=== PATIENT | male | born 1960 | race Caucasian/White ===

== ENCOUNTER 2022-04-03 14:07 | Outpatient (CLI) | payer OTHER | END 2022-04-03 14:08 | disposition home or self-care (01) | LOC: BICCT 14:07 | PROVIDERS: ATTEND Internal Medicine Cardiovascular Disease | DX: I71.2 Thoracic aortic aneurysm, without rupture (principal) | CPT/HCPCS: 71250 ==

== ENCOUNTER 2023-05-21 09:32 | Outpatient (CLI) | payer OTHER ==
[2023-05-21] MEDS ORDERED: Iopamidol-370 76% 500 ML MDV (1 ML CHARGE) ONE (12:48)
== END 2023-05-21 09:33 | disposition home or self-care (01) ==
LOC: BICCT 09:32
PROVIDERS: ATTEND Physician Assistant
DX: I25.10 Atherosclerotic heart disease of native coronary artery without angina pectoris (principal); I71.21 Aneurysm of the ascending aorta, without rupture; I71.20 Thoracic aortic aneurysm, without rupture, unspecified
CPT/HCPCS: 71275; Q9967

== ENCOUNTER 2023-09-04 09:13 | Outpatient (CLI) | payer OTHER ==
[2023-09-04] MEDS ORDERED: Iopamidol 370 76% 100 ML VIAL ONE (13:41)
== END 2023-09-04 09:14 | disposition home or self-care (01) ==
LOC: CT 09:13
PROVIDERS: ATTEND Internal Medicine Gastroenterology
DX: R10.9 Unspecified abdominal pain (principal); R63.4 Abnormal weight loss; N26.1 Atrophy of kidney (terminal); N28.89 Other specified disorders of kidney and ureter
CPT/HCPCS: 74160; 82565